=== PATIENT | male | born 1975 | race Caucasian/White ===

== ENCOUNTER 2018-09-15 12:32 | Inpatient (IN) ==
[2018-09-15] MEDS ORDERED: Sod Chloride 0.9% Inj 1,000 ML IV.SIG SCH ×3 (13:15→14:15)
[2018-09-15 13:32] LABS: Baso # (Auto) 0.1 th/mm3 (0.0-0.2); Baso % (Auto) 0.5 % (0.0-2.0); Eos % (Auto) 0.4 % (0.0-4.0); Hematocrit 40.1 % (39.0-51.0); Lymph # (Auto) 1.1 th/mm3 (1.0-4.8); Lymph % (Auto) 8.2 % (9.0-44.0); Mean Corpuscular HGB Conc 34.9 % (32.0-36.0); Mean Corpuscular Hemoglobin 30.2 pg (27.0-34.0); Mean Corpuscular Volume 86.6 fL (80.0-100.0); Mean Platelet Volume 7.8 fL (7.0-11.0); Mono # (Auto) 1.3 th/mm3 (0.0-0.9); Mono % (Auto) 9.1 % (0.0-8.0); Neut # (Auto) 11.2 th/mm3 (1.8-7.7); Neut % (Auto) 81.8 % (16.0-70.0); Platelet Count 293 th/mm3 (150-450); Red Blood Count 4.63 mil/mm3 (4.50-5.90); Red Cell Distribution Width 13.4 % (11.6-17.2); White Blood Count 13.7 th/mm3 (4.0-11.0)
--- NOTE | 2018-09-15 13:33 | ED ---
HPI General Chief Complaint: Fever Stated Complaint: flu symp Time Seen by Provider: 09/15/18 12:57 Source: patient Mode of arrival: ambulatory Limitations: no limitations History of Present Illness HPI Narrative: Patient is a 43-year-old male with no past medical histories except for having a SAMPLE TESTER shunt placed (it was replaced 2 years ago), presents the emergency room for evaluation of fever. Patient reports that since last week, he has had fevers with a T-max of 102. Patient reports that fever has been persistent despite taking antipyretics. Last dose of Tylenol was this morning. Patient reports that he did go to a [facility] clinic last week on Friday and was started on Tamiflu as well as a Z-Kayden. Patient reports that he has had a persisting cough, reports that he is not feeling any better. Patient reports that he has also been feeling achy all over. 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 Patient with no other complaints. MD complaint: Reports fever and weakness Onset (ago): week(s) (1 week) Maximum Temperature: 102 F Context: Reports recent antibiotic use Associated symptoms: Reports chills, myalgias, cough, nausea and vomiting Relieving factors: nothing Exacerbating factors: nothing Treatments prior to arrival fever: Reports acetaminophen Related Data Home Medications Medication Instructions Recorded Confirmed No Known Home Medications 09/15/18 09/15/18 Allergies Allergy/AdvReac Type Severity Reaction Status Date / Time No Known Allergies Allergy Verified 09/15/18 13:02 Review of Systems ROS: all other systems reviewed are negative [facility] Surgical History Surgical History SAMPLE TESTER (ventriculoperitoneal) shunt status (Acute) Social History Social History Substance History: No History of Abuse Smoking Status: Never smoker How Often Do You Have a Drink Containing Alcohol: 2 to 4 times a month Recent Travel in [place] within the Last 8 Weeks: No Recent Out of Country Travel within the Last 8 Weeks: No Immunization History Tetanus Immunization: >5 Years Exam Narrative Exam Narrative: GENERAL: Moderate distress SKIN: Focused skin assessment warm and tachy HEAD: Atraumatic. Normocephalic. EYES: Pupils equal and round. No scleral icterus. No injection or drainage. ENT: No nasal bleeding or discharge. Mucous membranes pink and dry. NECK: Trachea midline. No JVD. CARDIOVASCULAR: Tachycardia. No murmur appreciated. RESPIRATORY: No accessory muscle use. Patient has rales to his right upper and lower lobe of lung. Breath sounds equal bilaterally. GASTROINTESTINAL: Abdomen soft, non-tender, nondistended. Hepatic and splenic margins not palpable. MUSCULOSKELETAL: No obvious deformities. No clubbing. No cyanosis. No edema. NEUROLOGICAL: Awake and alert. No obvious cranial nerve deficits. Motor grossly within normal limits. Normal speech. PSYCHIATRIC: Appropriate mood and affect; insight and judgment normal. Course Initial Documented Vital Signs Temperature 99.3 F 09/15/18 12:34 Pulse Rate 127 H 09/15/18 12:34 Respiratory Rate 20 09/15/18 12:34 Blood Pressure 144/78 H 09/15/18 12:34 Pulse Oximetry 95 09/15/18 12:34 Last Documented Vital Signs Temperature 99.3 F 09/15/18 12:34 Pulse Rate 118 H 09/15/18 13:03 Respiratory Rate 24 09/15/18 13:03 Blood Pressure 150/85 H 09/15/18 13:03 Pulse Oximetry 96 09/15/18 13:49 Medical Decision Making MDM Narrative Medical decision making narrative: During the course of the patients emergency department visit, the patients history, examination, and differential diagnosis were reviewed with the patient. The patient was placed on a property assessment monitor with oximetry and frequent blood pressure monitoring. The patient had an IV access obtained and blood work sent for analysis. The patient was initially provided IVF The patients laboratory studies were reviewed and remarkable for wbc 13.7, hgb 14, htc 40.1, platelet 293 Sodium 129, potassium 3.3, BUN 16, creatinine 1.04, glucose 128, lactic acid 1.2 xray of the chest shows bibasilar infiltrates as well as right sided pleural effusion. Patient with multilobar pneumonia, he is persistently tachycardic with a HR of 110's, he was initially hypoxic with a pulse ox of 90%on room air with a white count of 13.7, patient meets sepsis criteria. Patient has been pancultured, he is been given a dose of azithromycin as well as Rocephin, plan to admit him to the hospital Case reviewed with Dr. Talavera who accepts pt to service Medical Screen Exam Complete: Yes Emergency Medical Condition: Yes Differential Diagnosis Differential Diagnosis: Pneumonia, influenza, viral syndrome Medical Records Medical records reviewed: Yes I reviewed the patient's medical records. Lab Data Result diagrams: 09/15/18 13:16 09/15/18 13:16 Lab Results 09/15/18 09/15/18 09/15/18 Range/Units 13:16 13:16 13:16 WBC 13.7 H (4.0-11.0) th/mm3 RBC 4.63 (4.50-5.90) mil/mm3 Hgb 14.0 (13.0-17.0) gm/dL Hct 40.1 (39.0-51.0) % MCV 86.6 (80.0-100.0) fL MCH 30.2 (27.0-34.0) pg MCHC 34.9 (32.0-36.0) % RDW 13.4 (11.6-17.2) % Plt Count 293 (150-450) th/mm3 MPV 7.8 (7.0-11.0) fL Neut % (Auto) 81.8 H (16.0-70.0) % Lymph % (Auto) 8.2 L (9.0-44.0) % [place] % (Auto) 9.1 H (0.0-8.0) % Eos % (Auto) 0.4 (0.0-4.0) % Baso % (Auto) 0.5 (0.0-2.0) % Neut # (Auto) 11.2 H (1.8-7.7) th/mm3 Lymph # (Auto) 1.1 (1.0-4.8) th/mm3 [place] # (Auto) 1.3 H (0.0-0.9) th/mm3 Eos # (Auto) 0.0 (0.0-0.4) th/mm3 Baso # (Auto) 0.1 (0.0-0.2) th/mm3 WBC Differential . Differential Comment Auto diff final Sodium 129 L (136-145) meq/L Potassium 3.3 L (3.5-5.1) meq/L Chloride 91 L (98-107) meq/L Carbon Dioxide 27.1 (21.0-32.0) meq/L Anion Gap 11 (5-15) meq/L BUN 16 (7-18) mg/dL Creatinine 1.04 (0.60-1.30) mg/dL Estimated GFR 78 L (>89) mL/min Random Glucose 128 H (74-106) mg/dL Lactic Acid 1.2 (0.4-2.0) mmol/L Calcium 9.2 (8.5-10.1) mg/dL Magnesium 2.5 (1.5-2.5) mg/dL Total Bilirubin 0.8 (0.2-1.0) mg/dL AST 54 H (15-37) U/L ALT 56 (12-78) U/L Alkaline Phosphatase 271 H (45-117) U/L Total Protein 7.8 (6.4-8.2) g/dL Albumin 2.9 L (3.4-5.0) g/dL Imaging Data Radiologist's impression: Chest X-Ray 09/15/18 13:12 CONCLUSION: Bibasilar infiltrates and right effusion. Discharge Plan Discharge Disposition Patient Disposition: 30 Still Patient Discharge Condition Condition: Fair Discharge Details Diagnosis: Sepsis Physicians Team ED Provider: Kasey Solano Primary Care Provider: Mustapha Farfan Rxs /Orders / Referrals /Forms Prescriptions: No Action No Known Home Medications RF: 0 Status ED Status: Admitted Patient
[2018-09-15 13:47] LABS: Albumin 2.9 g/dL (3.4-5.0); Anion Gap 11 meq/L (5-15); Blood Urea Nitrogen 16 mg/dL (7-18); Calcium 9.2 mg/dL (8.5-10.1); Carbon Dioxide 27.1 meq/L (21.0-32.0); Chloride 91 meq/L (98-107); Glomerular Filtration Rate 78 mL/min (>89); Glucose,Random 128 mg/dL (74-106); Magnesium 2.5 mg/dL (1.5-2.5); Potassium 3.3 meq/L (3.5-5.1); Sodium 129 meq/L (136-145)
--- NOTE | 2018-09-15 13:47 | XR ---
EXAM DATE: 09/15/2018 1:12 PM EDT AGE/SEX: 43 years / Male INDICATIONS: . Non-productive cough, congestion, fever, body aches, cold and flu symptoms for one we ek CLINICAL DATA: This is the patient's initial encounter. Patient reports that signs and symptoms have been present for 1 week and indicates a pain score of 0/10. MEDICAL/SURGICAL HISTORY: None. None. COMPARISON: No prior exams available for comparison. FINDINGS: Presumed ventriculoperitoneal shunt tubing traverses the left chest. There are bibasilar infiltrates, more prominent on the right than the left with associated right effusion. Visualized cardiac contour s are grossly satisfactory. CONCLUSION: Bibasilar infiltrates and right effusion. Electronically signed by: Rinku Karimi MD 09/15/2018 1:46 PM EDT
[2018-09-15 13:49] LABS: Alanine Aminotransferase 56 U/L (12-78); Aspartate Aminotransferase 54 U/L (15-37)
[2018-09-15 13:51] LABS: Alkaline Phosphatase 271 U/L (45-117); Total Protein 7.8 g/dL (6.4-8.2)
[2018-09-15] MEDS ORDERED: Azithromycin Inj 500 MG in Sodium Chlor 0.9% Inj 250 ML IV.SIG ONE (14:02)
--- NOTE | 2018-09-15 15:19 | P.HP ---
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 Patient reports he started with fevers and chills on Friday night one week ago. Patient presented to the Urgent care on Friday was treated with tamiflu despite negative rapid flu. Patient was also given a Z peace, but has not taken it. Patient reports non productive cough and SOB came on last /Friday. Patient also endorses decreased appetite. 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 Patient denies any particular sick contact. Patient has had persistent fevers up to 102 despite OTC antipyretic. Patient denies sore throat, chest pain, N/V. Chest X-Ray 09/15/18 Bibasilar infiltrates and right effusion. 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 This includes certification that hospital inpatient services are reasonable and necessary and in the case of services not specified as inpatient-only under 42 CFR 419.22(n), that they are appropriately provided as inpatient services in accordance to with the 2-midnight benchmark under 43 CFR 412.3(e) Review of Systems All other systems reviewed negative except as stated in [facility]PI [facility] - History History Provided By: Patient - Surgical History Surgical History: Surgical History (Last Reviewed 09/15/18 @ 13:32 by Kasey Solano) MEDICAL COMMUNICATION SPECIALIST (ventriculoperitoneal) shunt status - Tobacco History Smoking Status: Never smoker - Alcohol History How Often Do You Have a Drink Containing Alcohol: 2 to 4 times a month - Substance Use History Substance History: No History of Abuse - Travel History Recent Travel in the [place] Within the Last 8 Weeks: No Recent Travel Out of the Country Within the Last 8 Weeks: No - Immunization History Tetanus Immunization: >5 Years Medications and Allergies Active Medications: Active Medications Sodium Chloride (Ns Inj) 1,000 mls @ 0 mls/hr IV.SIG BOLUS ALISON Last Infusion: 09/15/18 14:42 Dose: Infused Sodium Chloride (Ns Inj) 1,000 mls @ 0 mls/hr IV.SIG BOLUS ALISON Last Admin: 09/15/18 14:54 Dose: 999 mls/hr Sodium Chloride (Ns Inj) 1,000 mls @ 0 mls/hr IV.SIG BOLUS ALISON Allergies Allergy/AdvReac Type Severity Reaction Status Date / Time No Known Allergies Allergy Verified 09/15/18 13:02 Home Medications Medication Instructions Recorded Confirmed Type No Known Home Medications 09/15/18 09/15/18 History Exam Vital signs: Vital Signs 09/15/18 12:34 09/15/18 13:03 09/15/18 13:49 Temperature 99.3 F Pulse Rate 127 H 118 H Respiratory Rate 20 24 Blood Pressure 144/78 H 150/85 H Pulse Oximetry 95 95 96 09/15/18 14:54 Temperature Pulse Rate 93 H Respiratory Rate 26 H Blood Pressure 130/75 Pulse Oximetry 95 Intake & Output 09/14/18 09/15/18 09/15/18 18:59 06:59 18:59 Intake Total 1100 / 1100 Balance 1100 / 1100 Weight 90.718 kg Intake: IV 1100 / 1100 NS Inj 1,000 ML @ Wide Open IV. 1000 / 1000 SIG BOLUS ALISON Rx#:[id number] Rocephin Inj 1,000 MG In NS Inj 100 / 100 100 ML @ 200 mls/hr IV.SIG ONCE ONE Rx#:[id number] Narrative: GENERAL: This is a 43 male patient who appear fatigued and weak CARDIOVASCULAR: Regular rate and rhythm RESPIRATORY: poor inspiratory effort faint crackles and rhonchi bilaterally GASTROINTESTINAL: Abdomen soft, non-tender, nondistended. Normal active bowel sounds MUSCULOSKELETAL: Extremities without clubbing, cyanosis, or edema. NEURO: Alert & Oriented x4 to person, place, time, situation. Moves all ext x4 Results - Labs CBC & Chem 7: 09/15/18 13:16 09/15/18 13:16 Labs: Laboratory Results - last 24 hr 09/15/18 09/15/18 09/15/18 13:16 13:16 13:16 WBC 13.7 H RBC 4.63 Hgb 14.0 Hct 40.1 MCV 86.6 MCH 30.2 MCHC 34.9 RDW 13.4 Plt Count 293 MPV 7.8 Neut % (Auto) 81.8 H Lymph % (Auto) 8.2 L [place] % (Auto) 9.1 H Eos % (Auto) 0.4 Baso % (Auto) 0.5 Neut # (Auto) 11.2 H Lymph # (Auto) 1.1 [place] # (Auto) 1.3 H Eos # (Auto) 0.0 Baso # (Auto) 0.1 WBC Differential . Differential Comment Auto diff final Sodium 129 L Potassium 3.3 L Chloride 91 L Carbon Dioxide 27.1 Anion Gap 11 BUN 16 Creatinine 1.04 Estimated GFR 78 L Random Glucose 128 H Lactic Acid 1.2 Calcium 9.2 Magnesium 2.5 Total Bilirubin 0.8 AST 54 H ALT 56 Alkaline Phosphatase 271 H Total Protein 7.8 Albumin 2.9 L - Imaging Impressions Chest X-Ray 09/15/18 13:12 CONCLUSION: Bibasilar infiltrates and right effusion. Caprini VTE Risk Assessment Caprini VTE Risk Assessment: No/Low Risk (score <= 1) Caprini Risk Assessment Model: Point Value = 1 Point Value = 2 Point Value = 3 Point Value = 5 Age 41-60 Minor surgery BMI > 25 kg/m2 Swollen legs Varicose veins or History of unexplained or recurrent spontaneous Oral contraceptives or hormone replacement Sepsis (< 1 month) Serious lung disease, including pneumonia (< 1 month) Abnormal pulmonary function Acute myocardial infarction Congestive heart failure (< 1 month) History of inflammatory bowel disease Medical patient at bed rest Age 61-74 Arthroscopic surgery Major open surgery (> 45 min) Laparoscopic surgery (> 45 min) Malignancy Confined to bed (> 72 hours) Immobilizing plaster cast Central venous access Age >= 75 History of VTE Family history of VTE Factor V Leiden Prothrombin [id number] Lupus anticoagulant Anticardiolipin antibodies Elevated serum homocysteine Heparin-induced thrombocytopenia Other congenital or acquired thrombophilia Stroke (< 1 month) Elective arthroplasty Hip, pelvis, or leg fracture Acute spinal cord injury (< 1 month) Prophylaxis Regimen: Total Risk Factor Score Risk Level Prophylaxis Regimen 0-1 Low Early ambulation 2 Moderate Order ONE of the following: *Sequential Compression Device (SCD) *Heparin 5000 units SQ BID 3-4 Higher Order ONE of the following medications: *Heparin 5000 units SQ TID *Enoxaparin/Lovenox 40 mg SQ daily (WT < 150 kg, CrCl > 30 mL/min) *Enoxaparin/Lovenox 30 mg SQ daily (WT < 150 kg, CrCl > 10-29 mL/min) *Enoxaparin/Lovenox 30 mg SQ BID (WT < 150 kg, CrCl > 30 mL/min) AND/OR *Sequential Compression Device (SCD) 5 or more Highest Order ONE of the following medications: *Heparin 5000 units SQ TID (Preferred with Epidurals) *Enoxaparin/Lovenox 40 mg SQ daily (WT < 150 kg, CrCl > 30 mL/min) *Enoxaparin/Lovenox 30 mg SQ daily (WT < 150 kg, CrCl > 10-29 mL/min) *Enoxaparin/Lovenox 30 mg SQ BID (WT < 150 kg, CrCl > 30 mL/min) AND *Sequential Compression Device (SCD) Assessment and Plan - Assessment (1) PNA (pneumonia) Code(s): J18.9 - Pneumonia, unspecified organism Status: Acute Plan: This is a 43 year old male patient with a past medical history which includes hydrocephalus MEDICAL COMMUNICATION SPECIALIST shunts originally placed at age 20 due to hydrocephalus, replaced x 3 and hernia repair at age 6. Patient reports he started with fevers and chills on Friday night one week ago. Patient presented to the Urgent care on Friday was treated with tamiflu despite negative rapid flu. Patient was also given a Z peace, but has not taken it. Patient reports non productive cough and SOB came on last /Friday. 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 Patient denies a particular sick contact. Patient has had persistent fevers 102 despite antipyretic OTC. Patient denies sore throat, chest pain, N/ V. Bilateral PNA Chest X-Ray 09/15/18 Bibasilar infiltrates and right effusion. WBC 13.7 blood cultures x 2 Patient started on Rocephin and Azithromycin in the ER Start Levaquin IV in AM Urine for legionella and pneumococcal antigen Sputum culture requested Duonebs Q6H while awake and as needed Mucinex BID IVFs Acetaminophen as needed for fevers If fevers persist after abx consider CT chest DVT prophylaxis with Lovenox
[2018-09-15] MEDS ORDERED: Acetaminophen 325 MG Tablet PO PRN (15:20)
[2018-09-15] MEDS ORDERED: Enoxaparin Inj 40 MG/0.4 ML Syringe SQ SCH (16:00)
[2018-09-15] MEDS: Sod Chloride 0.9% Inj 1,000 ML IV.CONT SCH (18:00)
[2018-09-15] MEDS: guaiFENesin 600 MG ER Tablet PO SCH (20:19)
[2018-09-15] MEDS: Senna/Docusate Sodium 8.6/50 MG Tablet PO SCH (22:13)
[2018-09-16 04:52] LABS: Baso % (Auto) 0.3 % (0.0-2.0); Eos # (Auto) 0.2 th/mm3 (0.0-0.4); Eos % (Auto) 1.8 % (0.0-4.0); Hemoglobin 11.9 gm/dL (13.0-17.0); Lymph # (Auto) 1.4 th/mm3 (1.0-4.8); Lymph % (Auto) 14.1 % (9.0-44.0); Mean Corpuscular HGB Conc 35.1 % (32.0-36.0); Mean Corpuscular Hemoglobin 30.4 pg (27.0-34.0); Mean Corpuscular Volume 86.7 fL (80.0-100.0); Mean Platelet Volume 7.5 fL (7.0-11.0); Mono % (Auto) 9.5 % (0.0-8.0); Neut # (Auto) 7.4 th/mm3 (1.8-7.7); Neut % (Auto) 74.3 % (16.0-70.0); Platelet Count 265 th/mm3 (150-450); Red Blood Count 3.92 mil/mm3 (4.50-5.90); Red Cell Distribution Width 13.6 % (11.6-17.2)
[2018-09-16 05:32] LABS: Anion Gap 9 meq/L (5-15); Blood Urea Nitrogen 10 mg/dL (7-18); Calcium 7.7 mg/dL (8.5-10.1); Carbon Dioxide 24.7 meq/L (21.0-32.0); Chloride 101 meq/L (98-107); Glomerular Filtration Rate Greater Than 89 mL/min (>89); Glucose,Random 106 mg/dL (74-106); Potassium 3.5 meq/L (3.5-5.1); Sodium 135 meq/L (136-145)
[2018-09-16] MEDS: Sod Chloride 0.9% Inj 1,000 ML IV.CONT SCH (07:03)
[2018-09-16 07:21] LABS: Eosinophils 1 % (0-4); Lymphocytes 13 % (9-44); Monocytes 4 % (0-8); Toxic Granulation 2+
[2018-09-16 07:22] LABS: Platelet Estimate Normal (Normal); Platelet Morphology Normal (Normal)
[2018-09-16] MEDS: Senna/Docusate Sodium 8.6/50 MG Tablet PO SCH (08:15)
[2018-09-16] MEDS: guaiFENesin 600 MG ER Tablet PO SCH (08:15)
--- NOTE | 2018-09-16 08:55 | P.PNIM ---
Subjective Interval history: eager for dc feels better. Physical Exam Vital signs: Vital Signs 09/15/18 12:34 09/15/18 13:03 09/15/18 13:49 Temperature 99.3 F Pulse Rate 127 H 118 H Respiratory Rate 20 24 Blood Pressure 144/78 H 150/85 H Pulse Oximetry 95 95 96 09/15/18 14:54 09/15/18 16:03 09/15/18 17:37 Temperature 99.6 F Pulse Rate 93 H 96 H 93 H Respiratory Rate 26 H 20 18 Blood Pressure 130/75 124/75 143/85 H Pulse Oximetry 95 96 97 09/15/18 18:55 09/15/18 18:56 09/15/18 19:00 Temperature Pulse Rate 106 H 107 H Respiratory Rate 18 Blood Pressure Pulse Oximetry 92 L 09/15/18 20:00 09/15/18 21:00 09/15/18 22:00 Temperature 101.7 F H Pulse Rate 104 H 98 H 84 Respiratory Rate 16 Blood Pressure 134/96 H Pulse Oximetry 92 L 09/15/18 23:00 09/16/18 00:00 09/16/18 01:00 Temperature 98.7 F Pulse Rate 71 92 H 74 Respiratory Rate 16 Blood Pressure 119/70 Pulse Oximetry 93 L 09/16/18 02:00 09/16/18 03:00 09/16/18 04:00 Temperature 99.2 F Pulse Rate 81 77 78 Respiratory Rate 16 Blood Pressure 125/75 Pulse Oximetry 93 L 09/16/18 05:00 09/16/18 06:00 09/16/18 07:00 Temperature Pulse Rate 86 76 79 Respiratory Rate Blood Pressure Pulse Oximetry 09/16/18 08:01 Temperature Pulse Rate 82 Respiratory Rate 18 Blood Pressure Pulse Oximetry 90 L Intake & Output 09/15/18 09/16/18 09/16/18 18:59 06:59 18:59 Intake Total 3850 / 3850 480 / 480 1000 / 1000 Output Total 500 / 500 Balance 3350 / 3350 480 / 480 1000 / 1000 Weight 90.718 kg 92.7 kg Intake: IV 3350 / 3350 1000 / 1000 NS Inj 1,000 ML @ 75 mls/hr IV. 1000 / 1000 CONT .[id number] [facility] Rx#:[id number] Azithromycin Inj 500 MG In NS 250 / 250 Inj 250 ML @ 250 mls/hr IV.SIG ONCE ONE Rx#:[id number] NS Inj 1,000 ML @ Wide Open IV. 3000 / 3000 SIG BOLUS ALISON Rx#:[id number] Rocephin Inj 1,000 MG In NS Inj 100 / 100 100 ML @ 200 mls/hr IV.SIG ONCE ONE Rx#:[id number] Oral 500 / 500 480 / 480 Output: Urine 500 / 500 Other: # Voids 2 Date of Last Bowel Movement 09/15/18 heart reg lung scattered rhonci improved abd s/nt ext no edema Results - Labs CBC & Chem 7: 09/16/18 04:08 09/16/18 04:08 Laboratory Results - last 24 hr 09/15/18 09/15/18 09/15/18 13:16 13:16 13:16 WBC 13.7 H RBC 4.63 Hgb 14.0 Hct 40.1 MCV 86.6 MCH 30.2 MCHC 34.9 RDW 13.4 Plt Count 293 MPV 7.8 Prelim Diff (Auto) Neut % (Auto) 81.8 H Lymph % (Auto) 8.2 L [place] % (Auto) 9.1 H Eos % (Auto) 0.4 Baso % (Auto) 0.5 Neut # (Auto) 11.2 H Lymph # (Auto) 1.1 [place] # (Auto) 1.3 H Eos # (Auto) 0.0 Baso # (Auto) 0.1 WBC Differential . Seg Neuts % (Manual) Band Neuts % (Manual) Lymphocytes % (Manual) Monocytes % (Manual) Eosinophils % (Manual) Abs Neuts (Manual) Differential Comment Auto diff final Toxic Granulation Platelet Estimate Platelet Morphology Sodium 129 L Potassium 3.3 L Chloride 91 L Carbon Dioxide 27.1 Anion Gap 11 BUN 16 Creatinine 1.04 Estimated GFR 78 L Random Glucose 128 H Lactic Acid 1.2 Calcium 9.2 Magnesium 2.5 Total Bilirubin 0.8 AST 54 H ALT 56 Alkaline Phosphatase 271 H Total Protein 7.8 Albumin 2.9 L 09/16/18 09/16/18 04:08 04:08 WBC 10.0 RBC 3.92 L Hgb 11.9 L D Hct 34.0 L MCV 86.7 MCH 30.4 MCHC 35.1 RDW 13.6 Plt Count 265 MPV 7.5 Prelim Diff (Auto) Slide review pending Neut % (Auto) 74.3 H Lymph % (Auto) 14.1 [place] % (Auto) 9.5 H Eos % (Auto) 1.8 Baso % (Auto) 0.3 Neut # (Auto) 7.4 Lymph # (Auto) 1.4 [place] # (Auto) 1.0 H Eos # (Auto) 0.2 Baso # (Auto) 0.0 WBC Differential Manual diff final Seg Neuts % (Manual) 73 H Band Neuts % (Manual) 9 H Lymphocytes % (Manual) 13 Monocytes % (Manual) 4 Eosinophils % (Manual) 1 Abs Neuts (Manual) 8.2 H Differential Comment . Toxic Granulation 2+ H Platelet Estimate Normal Platelet Morphology Normal Sodium 135 L Potassium 3.5 Chloride 101 D Carbon Dioxide 24.7 Anion Gap 9 BUN 10 Creatinine 0.74 Estimated GFR Greater than 89 Random Glucose 106 Lactic Acid Calcium 7.7 L D Magnesium Total Bilirubin AST ALT Alkaline Phosphatase Total Protein Albumin Microbiology 09/15/18 18:11 Urine - Clean Catch Urine Legionella Antigen - Final Presumptive negative for Legionella pneumophila serogroup 1 antigen in urine, suggesting no recent or recurrent infection. Infection due to Legionella cannot be ruled out since other serogroups and species may cause disease, antigen may not be present in urine in early infection, and the level of antigen present in the urine may be below the detection limit of the test. 09/15/18 18:11 Urine - Clean Catch Urine Streptococcus pneumoniae Antigen ( M - Final Presumptive negative for streptococcus pneumoniae antigen, suggesting no current or recent infection. Infection due to Streptococcus pneumoniae cannot be ruled out since the antigen present in the sample may be below the detection limit of the test. 09/15/18 13:47 Nasal Wash Influenza Types A,B Antigen - Final Negative for FLU A and B antigen Infection due to influenza A or B cannot be ruled out since the antigen present in the sample may be below the detection limit of the test. - Imaging Impressions Chest X-Ray 09/15/18 13:12 CONCLUSION: Bibasilar infiltrates and right effusion. 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 Patient reports he started with fevers and chills on Friday night one week ago. Patient presented to the Urgent care on Friday was treated with tamiflu despite negative rapid flu. Patient was also given a Z peace, but has not taken it. Patient reports non productive cough and SOB came on last /Friday. 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 Patient denies a particular sick contact. Patient has had persistent fevers 102 despite antipyretic OTC. Patient denies sore throat, chest pain, N/ V. Bilateral PNA Chest X-Ray 09/15/18 Bibasilar infiltrates and right effusion. WBC 13.7 now 10 Patient started on Rocephin and Azithromycin in the ER Start Levaquin IV Urine for legionella and pneumococcal antigen negative influenza screen negative Sputum culture requested but not producing sputum Duonebs Q6H while awake and as needed Mucinex BID IVFs given Pt eager for dc today. I offered at least 24hrs in hospital beyond last fever..he says he is feeling better and would rather go home. will recheck his vitals at noon at if still feeling well plan for dc later today with po abx and f/u
== END 2018-09-16 13:25 | disposition home or self-care (01) ==
LOC: NEPC 12:32 → NEDA 14:25 → HCIS 16:29
PROVIDERS: ADMIT Hospitalist; ATTEND Hospitalist